=== PATIENT | male | born 1995 | race Two or more races ===

== ENCOUNTER 2019-11-28 19:44 | Emergency (ER) | payer SELFPAY ==
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
--- NOTE | 2019-11-28 20:31 | CR ---
INDICATION: Atypical chest pain TECHNIQUE: Portable upright AP view of the chest COMPARISON: None FINDINGS: The lungs are clear. There is no sizable pleural effusion or pneumothorax. The cardiomediastinal silhouette is normal. The visualized osseous structures are unremarkable. IMPRESSION: No acute intrathoracic process. Dictated by Cl Bay MD @ Nov 28 2019 8:28PM Signed by Dr. Cl Bay @ Nov 28 2019 8:29PM
[2019-11-28 22:09] LABS: BLOOD UREA NITROGEN,BUN 20 mg/dL (7.0-18.0); CHLORIDE,CL 99 mmol/L (98-107); GLUCOSE RANDOM 391 mg/dL (74-106); POTASSIUM,K 3.8 mmol/L (3.5-5.1); SODIUM,NA 136 mmol/L (136-148)
== END 2019-11-28 23:20 | disposition home or self-care (01) ==
LOC: MW.ED 19:44
DX: T59.811A Toxic effect of smoke, accidental (unintentional), initial encounter (principal); J68.9 Unspecified respiratory condition due to chemicals, gases, fumes and vapors; E11.65 Type 2 diabetes mellitus with hyperglycemia; R00.0 Tachycardia, unspecified; I44.5 Left posterior fascicular block
CPT/HCPCS: 36415; 36600; 71045; 71045-26; 80053; 80305-QW; 80307; 82375; 82550; 82803; 84484; 85025; 93005; 93010; 99284; 99285-25